=== PATIENT | female | born 1960 | race Caucasian/White ===

== ENCOUNTER 2020-11-25 11:34 | Emergency (ER) | payer BC, OTHER ==
[~2020-11-25] VITALS: Ht 170.2 cm; Wt 121.0 kg
[~2020-11-25 11:34] MED LIST: IBUP200T58 PO; [UNRECOGNIZED DRUG - REMARK] PO
[2020-11-25 11:50] VITALS: BP 152/104
[2020-11-25] MEDS ORDERED: ONDANSETRON PF 4 MG/2 ML VIAL. IVP ONE (12:00)
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
[2020-11-25] MEDS: KETOROLAC 30 MG/ML VIAL. IVP ONE (12:46)
[2020-11-25] MEDS: IV NORMAL SALINE 1,000ML 1,000 ML IV ONE (12:47)
[2020-11-25 13:01] LABS: BASO # 0.1 x10^3/uL (0.0-0.2); BASO % 1 % (0-3); EOS # 0.3 x10^3/uL (0.0-0.7); EOS % 3 % (0-3); HEMATOCRIT 42.4 % (36.0-47.0); HEMOGLOBIN 14.3 g/dL (12.0-15.5); LYMPH # 1.9 x10^3/uL (1.0-4.8); LYMPH % 20 % (24-48); MEAN CORPUSCULAR HEMOGLOBIN 32 pg (25-35); MEAN CORPUSCULAR HGB CONC 34 g/dL (31-37); MEAN CORPUSCULAR VOLUME 94 fL (79-100); MONO # 0.5 x10^3/uL (0.0-1.1); MONO % 6 % (0-9); NEUT # 6.7 x10^3uL (1.8-7.7); NEUT % 70 % (31-73); PLATELET COUNT 256 x10^3/uL (140-400); RED BLOOD COUNT 4.51 x10^6/uL (3.50-5.40); RED CELL DISTRIBUTION WIDTH 14.2 % (11.5-14.5); WHITE BLOOD COUNT 9.5 x10^3/uL (4.0-11.0)
[2020-11-25 13:36] LABS: CREATININE 0.8 mg/dL (0.6-1.0); GFR 72.7; POTASSIUM 3.7 mmol/L (3.5-5.1)
[2020-11-25 13:42] LABS: ALBUMIN 3.6 g/dL (3.4-5.0); ALBUMIN/GLOBULIN RATIO 1.1 (1.0-1.7); TOTAL BILIRUBIN 0.8 mg/dL (0.2-1.0)
[2020-11-25] MEDS ORDERED: HYDR-2759 PO (14:17)
[2020-11-25] MEDS ORDERED: CYCL-331 PO (14:27)
[2020-11-25 14:29] LABS: BILIRUBIN,URINE NEG (NEG); CLARITY,URINE CLEAR; COLOR,URINE YELLOW; GLUCOSE,URINE NEG (NEG); NITRITE,URINE NEG (NEG); UROBILINOGEN,URINE 0.2 mg/dL (0.2 mg/dL)
[2020-11-25 14:36] LABS: BACTERIA,URINE 0 /HPF (0-FEW); RBC,URINE 0 /HPF (0-2); SQUAMOUS EPITHELIAL CELL,UR MOD /LPF
[2020-11-25] MEDS: CYCLOBENZAPRINE 10 MG TABLET. PO ONE (14:42)
[2020-11-25] MEDS: HYDROcodone/APAP 7.5/325MG 1 TAB TABLET PO ONE (14:42)
[2020-11-25] MEDS ORDERED: HYDR-2155 PO (16:34)
== END 2020-11-25 14:53 | disposition home or self-care (01) ==
LOC: ER 11:34
DX: M54.2 Cervicalgia (principal); I10 Essential (primary) hypertension; Z98.51 Tubal ligation status; Z88.6 Allergy status to analgesic agent; V43.52XA Car driver injured in collision with other type car in traffic accident, initial encounter; Y93.89 Activity, other specified; Y92.488 Other paved roadways as the place of occurrence of the external cause; Y99.8 Other external cause status
CPT/HCPCS: 36415; 70450; 71101; 72072; 72125; 80053; 81001; 85025; 87086; 96361; 96374; 99285; J1885; J7030

== ENCOUNTER 2021-05-20 12:44 | Emergency (ER) | payer OTHER, MEDICAID ==
[~2021-05-20] VITALS: Ht 170.2 cm; Wt 121.0 kg
[2021-05-20 12:44] VITALS: BP 149/75
[~2021-05-20 12:44] MED LIST changes: +CYCL10TA19 PO; +HYDR-2155 PO; +HYDR-2759 PO
--- NOTE | 2021-05-20 13:23 | PHYS DOC ---
Past History Past Medical History: Depression, Diabetes, Hypertension Additional Past Medical Histor: "Borderline HTN on no meds." DDD.Insomnia. Bad knees. Obesity Past Surgical History: Appendectomy, Hip Replacement, Tubal ligation Additional Past Surgical Histo: Lump from right side of back removed. (Benign.) Smoking: Cigarettes, Less than 1pk/day Alcohol Use: Rarely Drug Use: None General Adult EDM: Chief Complaint: LOWER EXT PAIN HPI: HPI: 60-year-old female presents with palpable mass in the right lower leg. The patient was showering today and she noticed a 1 to 1/2 cm nodular area of the lower leg. The patient recently had hip surgery and called her primary physician. He recommended that she call me in for evaluation and possible ultrasound. Patient denies any significant pain, shortness of breath or other symptoms. Review of Systems: Review of Systems: Constitutional: Denies fever or chills Eyes: Denies change in visual acuity HENT: Denies nasal congestion or sore throat Respiratory: Denies cough or shortness of breath Cardiovascular: Denies chest pain or edema GI: Denies abdominal pain, nausea, vomiting, bloody stools or diarrhea : Denies dysuria Musculoskeletal: Denies back pain or joint pain Integument: Palpable superficial mass right calf Neurologic: Denies headache, focal weakness or sensory changes Endocrine: Denies polyuria or polydipsia Lymphatic: Denies swollen glands Psychiatric: Denies depression or anxiety Allergies: Allergies: Allergies Coded Allergies Type Severity Reaction Last Updated Verified codeine Allergy Mild Rash/N/V 07/02/13 Yes Physical Exam: PE: Constitutional: Well developed, well nourished, no acute distress, non-toxic appearance. [] HENT: Normocephalic, atraumatic, bilateral external ears normal, oropharynx moist, no oral exudates, nose normal. [] Eyes: PERRLA, EOMI, conjunctiva normal, no discharge. [] Neck: Normal range of motion, no tenderness, supple, no stridor. [] Cardiovascular:Heart rate regular rhythm, no murmur [] Lungs & Thorax: Bilateral breath sounds clear to auscultation [] Abdomen: Bowel sounds normal, soft, no tenderness, no masses, no pulsatile masses. [] Skin: 1.5 cm superficial palpable mass of the right lower leg, mild ecchymosis in general area. [] Back: No tenderness, no CVA tenderness. [] Extremities: No tenderness, no cyanosis, no clubbing, ROM intact, no edema. [] Neurologic: Alert and oriented X 3, normal motor function, normal sensory function, no focal deficits noted. [] Psychologic: Affect normal, judgement normal, mood normal. [] Current Patient Data: Vital Signs: Vital Signs Date Time Temp Pulse Resp B/P (MAP) Pulse Ox O2 Delivery O2 Flow Rate FiO2 05/20/21 12:44 98.2 75 18 149/75 (99) 99 Room Air EKG: EKG: [] Radiology/Procedures: Radiology/Procedures: [] Heart Score: C/O Chest Pain: N/A Risk Factors: Risk Factors: DM, Current or recent (<one month) smoker, HTN, HLP, family history of CAD, obesity. Risk Scores: Score 0 - 3: 2.5% MACE over next 6 weeks - Discharge Home Score 4 - 6: 20.3% MACE over next 6 weeks - Admit for Clinical Observation Score 7 - 10: 72.7% MACE over next 6 weeks - Early Invasive Strategies Course & Med Decision Making: Course & Med Decision Making Pertinent Labs and Imaging studies reviewed. (See chart for details) The patient's palpable mass is small and very superficial. I elected to use bedside ultrasound to evaluate the area. There was no significant vascular flow in the area. There was a small hypoechoic area less than 1 cm in diameter with possible sac around it likely cystic or just superficial fat tissue. I do not believe formal ultrasound is necessary based on my exam and her symptoms. The patient is greatly reassured. She is stable for discharge at this time. [] Dragon Disclaimer: Dragon Disclaimer: This electronic medical record was generated, in whole or in part, using a voice recognition dictation system. Departure Departure: Impression: Primary Impression: Mass of right lower leg Disposition: HOME / SELF CARE / HOMELESS Condition: STABLE Referrals: CESAR RIVERO MD (PCP) Patient Instructions: Epidermal Cyst, [id number] YOUNG ADAME DO May 20, 2021 13:23
== END 2021-05-20 13:35 | disposition home or self-care (01) ==
LOC: ER 12:44
DX: R22.41 Localized swelling, mass and lump, right lower limb (principal); E11.9 Type 2 diabetes mellitus without complications; I10 Essential (primary) hypertension; F17.210 Nicotine dependence, cigarettes, uncomplicated; Z98.51 Tubal ligation status; Z88.5 Allergy status to narcotic agent
CPT/HCPCS: 99283-25